=== PATIENT | male | born 1960 | race Caucasian/White ===

== ENCOUNTER 2017-07-16 19:38 | Emergency (ER) | payer SELFPAY, OTHER | END 2017-07-16 19:50 | disposition left against medical advice (07) | LOC: FTE 19:50 | DX: Z53.21 Procedure and treatment not carried out due to patient leaving prior to being seen by health care provider (principal) ==

== ENCOUNTER 2017-07-17 09:42 | Day surgery (SDC) | payer OTHER ==
[2017-07-17 11:09] LABS: INR 1.35; PROTIME 16.9 Sec (11.9-14.9); PT RATIO 1.3
[2017-07-17 11:43] LABS: WHITE BLOOD COUNT 3.2 10^3/ul (4.8-10.8)
[2017-07-17 11:43] LABS: ABNORMAL IP MESSAGE 1; HEMATOCRIT 40.2 % (42.0-52.0); HEMOGLOBIN 14.7 g/dl (14.0-18.0); MEAN CORPUSCULAR HEMOGLOBIN 34.4 pg (29.0-33.0); MEAN CORPUSCULAR HGB CONC 36.6 g/dl (32.0-37.0); MEAN CORPUSCULAR VOLUME 94.1 fl (82.0-101.0); MEAN PLATELET VOLUME 11.4 fl (7.4-10.4); POSITIVE DIFF @See below; RED BLOOD COUNT 4.27 10^6/ul (4.70-6.10); RED CELL DISTRIBUTION WIDTH 13.5 % (11.5-14.5)
[2017-07-17 11:49] LABS: ADD MAN DIFF? YES; PLATELET COUNT 29 10^3/UL (140-415)
[2017-07-17 12:41] LABS: ANISOCYTOSIS 1+ (0-0); BAND NEUTROPHILS #M 0.2 10^3/ul (0.0-0.6); BAND NEUTROPHILS % (M) 7 % (0-4); BASOPHILS % (M) 1 % (0-2); EOSINOPHILS % (M) 2 % (0-7); LYMPHOCYTES % (M) 34 % (15-51); MICROCYTOSIS 1+ (0-0); MONOCYTE #M 0.1 10^3/ul (0.3-0.9); MONOCYTES % (M) 4 % (0-11); PLATELET ESTIMATE SIG DECREASED; POIKILOCYTOSIS 1+ (0-0); POLYCHROMASIA 3+ (0-0); REACTIVE LYMPHOCYTES #M 0.3 10^3/ul (0.0-0.0); REACTIVE LYMPHOCYTES% (M) 12 % (0-0); SEG NEUT #M 1.3 10^3/ul (1.6-7.5); SEGMENTED NEUTROPHILS (M) % 40 % (39-77); SMUDGE%M 3 % (0-0)
[2017-07-18 08:26] LABS: IMMEDIATE SPIN CROSSMATCH 1 1
[2017-07-18] MEDS ORDERED: LIDOCAINE 2% (SDV) 5 ML INJ (14:56)
[2017-07-18] MEDS ORDERED: PROPOFOL 40 ML (14:56)
== END 2017-07-17 18:04 | disposition home or self-care (01) ==
LOC: GIL 09:42
DX: K74.60 Unspecified cirrhosis of liver (principal); Z53.9 Procedure and treatment not carried out, unspecified reason
CPT/HCPCS: 36430; 85025; 85610; 86850; 86900; 86901; 86920

== ENCOUNTER 2017-07-18 07:34 | Day surgery (SDC) | payer OTHER | END 2017-07-18 17:11 | disposition home or self-care (01) | LOC: GIL 07:34 → SDS 07:42 → GIL 17:11 | DX: I85.00 Esophageal varices without bleeding (principal); K76.6 Portal hypertension; K31.89 Other diseases of stomach and duodenum | CPT/HCPCS: 36430 ==